=== PATIENT | female | born 1965 | race African-American/Black ===

== ENCOUNTER 2016-06-04 02:38 | Emergency (ER) | payer BC ==
[~2016-06-04] VITALS: Ht 167.6 cm; Wt 67.6 kg
[2016-06-04 02:47] VITALS: BP 145/90
--- NOTE | 2016-06-04 02:56 | NUR ---
PT TAKEN TO BED 1 VIA WHEELCHAIR
--- NOTE | 2016-06-04 03:07 | NUR ---
Dr. Rizzo evaluating patient at bedside.
[2016-06-04] MEDS ORDERED: HYDROmorphone PFS 2 MG/ML SYR IM ONE (03:10)
[2016-06-04] MEDS ORDERED: ONDANSETRON 4 MG ODT PO ONE (03:10)
--- NOTE | 2016-06-04 03:24 | NUR ---
PATIENT PRESENTS TO ED WITH RT. LOWER BACK PAIN SINCE YESTERDAY . PT STATES THE PAIN IS INDESCRIBEABLE AND UNBEARABLE AND THAT SHE HAS BEEN TAKING FLEXERIL AND VICODIN AT HOME FOR PAIN . DENIES N/V/D; SKIN IS PINK/WARM/DRY; AAOX4 WITH EVEN AND STEADY GAIT; LUNGS CLEAR BL; HR EVEN AND REGULAR; PT DENIES ANY FEVER, CP, SOB, OR COUGH AT THIS TIME; PATIENT STATES PAIN OF 10/10 AT THIS TIME; VSS; PATIENT POSITIONED FOR COMFORT; HOB ELEVATED; BEDRAILS UP X2; BED DOWN. ER MD MADE AWARE OF PT STATUS.
--- NOTE | 2016-06-04 05:11 | NUR ---
REPORT GIVEN TO ANKITA BERRY. TRANSFER OF CARE AT THIS TIME
[2016-06-04] MEDS ORDERED: LORazepam 1 MG TAB PO ONE (05:30)
[2016-06-04] MEDS ORDERED: HYDROmorphone 1 MG/ML AMP IM ONE (05:30)
--- NOTE | 2016-06-04 06:02 | NUR ---
Patient discharged with v/s stable. Written and verbal after care instructions given and explained. Patient alert, oriented and verbalized understanding of instructions. Wheel Chair Assisted with to car. All questions addressed prior to discharge. ID band removed. Patient advised to follow up with PMD. Rx of ATIVAN 1 MG, PERCOCET5/325MG given. Patient educated on indication of medication including possible reaction and side effects. Opportunity to ask questions provided and answered.
[2016-06-04 06:04] VITALS: BP 125/75
== END 2016-06-04 06:02 | disposition home or self-care (01) ==
LOC: MED 02:38
DX: M54.5 Low back pain (principal); G89.29 Other chronic pain; R11.0 Nausea; R03.0 Elevated blood-pressure reading, without diagnosis of hypertension
CPT/HCPCS: 74176; 81002; 81025; 96372; 99284; J1170; S0119